=== PATIENT | female | born 1980 | race Caucasian/White ===

== ENCOUNTER 2018-09-04 02:20 | Emergency (ER) | payer SELFPAY ==
[2018-09-04 02:27] VITALS: BP 118/87; PULSE 90; RESP 20; TEMP 36.5; O2SAT 96
--- NOTE | 2018-09-04 02:42 | W.ED.GENAD ---
Discharge Plan Disposition Patient Disposition: HOME Condition: Good Discharge Details Chief Complaint: FacialProb Clinical Impression: Dental infection Primary Care Provider: Karli Nicole ED Provider: Jamal Krishnan Meds and New Rx's Prescriptions: New amoxicillin 500 mg capsule 500 mg PO TID Qty: 30 RF: 0 Discharge Instructions Instructions: Dental Abscess (ED) Additional Instructions: Take antibiotic as directed. Continue to use acetaminophen and ibuprofen for pain. You will need to contact a dentist on Thursday for follow-up. Return to ED for worsening facial swelling, fever, increased pain, difficulty breathing, inability to swallow. Discharge Data Discharge Date/Time-TO BE ENTERED AT DEPARTURE: 09/04/18 02:55 Medical Decision Making Patient with probable dental abscess with related facial edema. There is no gingival abscess for drainage. She is started on amoxicillin. She reports acetaminophen and ibuprofen work for her pain. She will follow-up with a dentist on Thursday. Return to ED if she develops fever, worsening pain, continued/worsening facial swelling, difficulty breathing, inability to swallow. HPI General Mode of arrival: ambulatory. Date/Time Provider Initiated Documentation: 09/04/18 02:33. Limitations to Documentation: no limitations. Information obtained by: patient. HPI Narrative: Patient presents to ED with right upper tooth pain and facial swelling. Patient reports developing toothache a couple of days ago. She had a little bit of facial swelling when she went to bed tonight. Woke up with increased pain and significant facial swelling this morning. Came in for evaluation. She has had no fever. She has no difficulty breathing. She has no difficulty swallowing. She has no eye pain or change in vision. Related Data Home Medications Medication Instructions Recorded Confirmed amoxicillin 500 mg PO TID #30 cap 09/04/18 Previous Rx's Medication Instructions Recorded amoxicillin 500 mg PO TID #30 cap 09/04/18 Allergies Allergy/AdvReac Type Severity Reaction Status Date / Time No Known Allergies Allergy Unverified 09/04/18 02:29 General Stated Complaint: FacialProb LINDA: 3 Review of Systems Constitutional Denies chills, Denies fever(s) and Denies headache(s) Eyes Denies change in vision and Denies eye pain ENT Reports dental pain, Denies otalgia, Reports facial pain, Denies headache(s), Denies lip swelling and Denies sinus pain Cardiovascular Denies dyspnea Respiratory Denies dyspnea Musculoskeletal Denies numbness and Denies tingling Neurologic Denies headache(s), Denies focal weakness, Denies numbness and Denies tingling Allergic/Immunologic Denies lip swelling [facility] Social History Smoking/Tobacco Use Status: Current every day Social History Smoking/Tobacco Use Status: Current every day Exam Const General: cooperative, comfortable and no acute distress Orientation: alert and oriented x3 HENMT Head: normocephalic and atraumatic Ears: external ears normal General nose exam: external nose normal Face and sinus: no erythema, edema on the right maxilla and no tenderness Mouth: oral mucosae normal Teeth and gingiva: abnormal tooth or associated gingiva (Tooth #4 and 5 with percussion tenderness. Tooth #5 with decay and loose. No obvious abscess or swelling to the gingiva.) Eyes Periorbital: periorbital findings abnormal right periorbital swelling (Slight inferior periorbital edema extending up from the facial edema); no tenderness and no erythema Eyelids: eyelids normal Pupils: PERRL EOM: EOM intact bilaterally Neck Neck: normal visual inspection, full ROM and supple Skin General skin exam: no erythema Neuro General: alert, oriented x3, no focal motor deficits and CN's II-XI intact bilaterally Course Vital Signs Temperature 97.7 F 09/04/18 02:27 Pulse 90 09/04/18 02:27 Respiratory Rate 20 09/04/18 02:27 Blood Pressure 118/87 09/04/18 02:27 Pulse Oximetry 96 09/04/18 02:27 Temperature 97.7 F 09/04/18 02:27 Temperature Source Temporal Artery Scan 09/04/18 02:27 Pulse 90 09/04/18 02:27 Respiratory Rate 20 09/04/18 02:27 Respiratory Effort Non-Labored 09/04/18 02:27 Blood Pressure 118/87 09/04/18 02:27 Blood Pressure Position Sitting 09/04/18 02:27 Pulse Oximetry 96 09/04/18 02:27 Oxygen Delivery Method Room Air 09/04/18 02:27 Oxygen Flow Rate 0 09/04/18 02:27 Pain Level 5 09/04/18 02:27
[2018-09-04] MEDS: Amoxicillin 500 MG CAP PO (02:46)
[2018-09-04 03:22] VITALS: BP 118/87; PULSE 90; RESP 20; TEMP 36.5; O2SAT 96
== END 2018-09-04 02:55 | disposition home or self-care (01) ==
LOC: ER 02:58
PROVIDERS: Emergency Provider Emergency Medicine; PCP Family Medicine
DX: R60.0 Localized edema (principal); K04.7 Periapical abscess without sinus
CPT/HCPCS: 99283

== ENCOUNTER 2025-03-10 15:37 | Emergency (ER) | payer OTHER, SELFPAY ==
[2025-03-10 15:39] VITALS: BP 119/85; PULSE 106; RESP 22; TEMP 36.8; O2SAT 98
--- NOTE | 2025-03-10 16:02 | ED.GENADUL_ITS ---
Discharge Plan Disposition Patient Disposition: Home Condition: Stable Discharge Details Clinical Impression: Depression with anxiety Primary Care Provider: Karli Nicole ED Provider: Ro Kelley Home Meds and New Rx's Prescriptions: New escitalopram oxalate [Lexapro] 10 mg tablet 10 mg PO DAILY Qty: 30 0RF hydroxyzine HCl 25 mg tablet 25 mg PO TID PRNQty: 14 0RF Discharge Instructions Instructions: Tips to Help You Purlear in Uncertain Times Additional Instructions: You were seen in the emergency department today for evaluation of depression with anxiety. In our department you had a full physical exam, and met with a social staff worker to discuss outpatient resources. I have provided you with prescriptions for a new antidepressant medication, called Lexapro, which you should take daily. I also provided you with hydroxyzine which you can use as needed for anxiety. This may make you sleepy so please be cautious with driving until you know how this medication will affect you. Please follow-up with your primary care provider in the next few days to discuss this visit and any symptoms that change, worsen, or persist. Thank you for allowing us to be part of your care. HPI General Mode of arrival: ambulatory . Date/Time Provider Initiated Documentation: 03/10/25 15:40 . Limitations to Documentation: no limitations . Information obtained by: patient, family and old records reviewed . HPI Narrative: Past medical history of reported depression and anxiety, not currently actively managed, presenting for evaluation of anxiety. Reports that she has been struggling for the last several years has a substance use disorder, and states that this weekend things acutely worse. He does not reside with her, called her this weekend stating that he needed money because he was being held hostage. She got together 2500 dollars, and brought it to him, at which point he told her that he was never in any danger and needed to monitor drugs. She reports that she feels like her depression anxiety has gotten significantly worse since this event, she feels very tearful, vomiting, she states that she manages the symptoms she reports she is not experiencing suicidal or homicidal, is hopeful that she will be able to engage in health resources because she feels the patient reports that she is not able to meet with her primary care provider for medications for the she smokes cigarettes but she has a safe place to reside with her child, and endorses social supports including friends and father Basim as well as her mother. She has medically been in her typical state of health though she does report over the last 3 years she has had weight loss due to stress. Related Data Home Medications ?Medication ?Instructions ?Recorded ?Confirmed escitalopram oxalate 10 mg tablet 10 mg PO DAILY #30 t abs 03/10/25 (Lexapro) hydroxyzine HCl 25 mg tablet 25 mg PO TID PRN #14 tabs 03/10/25 Previous Rx's ?Medication ?Instructions ?Recorded escitalopram oxalate 10 mg tablet 10 mg PO DAILY #30 t abs 03/10/25 (Lexapro) hydroxyzine HCl 25 mg tablet 25 mg PO TID PRN #14 tabs 03/10/25 Allergies Allergy/AdvReac Type Severity Reaction Status Date / Time No Known Allergies Allergy Unverified 09/04/18 02:29 General Stated Complaint: Anxiety LINDA: 4 Exam Narrative Exam Narrative: Gen: Awake and alert, tearful HEENT: Non-icteric sclera Neck: Supple Lungs: No apparent respiratory distress, normal respiratory effort. Lung sounds clear and equal CV: Appears well perfused with regular rate and rhythm at the time of this provider's examination Abdomen: Non-distended MSK: Moves 4 extremities without apparent limitation in ROM Skin: Visualized skin without rashes, cyanosis. Neuro: Normal Gait, no obvious focal deficits or facial asymmetry. Speaks in full, clear sentences. Psych: Tearful, but forward thinking, linear thought process, no suicidal or homicidal ideation Course Vital Signs Vital signs: Vital Signs Temperature 36.8 C 03/10/25 15:39 Pulse 106 H 03/10/25 15:39 Respiratory Rate 22 03/10/25 15:39 Blood Pressure 119/85 03/10/25 15:39 Pulse Oximetry 98 03/10/25 15:39 Temperature 36.8 C 03/10/25 15:39 Temperature Source Oral 03/10/25 15:39 Pulse 106 H 03/10/25 15:39 Respiratory Rate 22 03/10/25 15:39 Blood Pressure 119/85 03/10/25 15:39 Blood Pressure Position Sitting 03/10/25 15:39 Pulse Oximetry 98 03/10/25 15:39 Oxygen Delivery Method Room Air 03/10/25 15:39 Oxygen Flow Rate 0 03/10/25 15:39 Pain Level 0 03/10/25 15:39 Medical Decision Making This is a 44-year-old female patient presenting for evaluation of depression and anxiety in the setting of increased social stressors. My differential includes but is not limited to primary psychiatric disturbance, the patient has no e vidence on my physical exam or in her history of withdrawal symptoms or active intoxication. She is tolerating oral intake and I have a lower concern for metabolic and electrolyte derangement, infectious abnormalities. The patient meets [facility] medical clearance criteria, and [facility] will be contacted to evaluate the patient and assist in connecting her with resources. I do not see an indication at this time to place the patient on an involuntary psychiatric hold, and suspect she will not meet criteria for inpatient psychiatric care. -The patient engages and will safety plan, and a referral for medication management, and I have started her on Lexapro, 10 mg, which she has utilized in the past to good effect. I also provided her with a short course of hydroxyzine for as needed anxiety management. At this time, the patient has had a full medical evaluation and is safe for discharge to home. They are hemodynamically stable, ambulatory, and tolerating PO. They are understanding of the follow-up plan and return precautions. They left our facility without incident. Ro Kelley MD PFSH All Active Problems (Updated 03/10/25 @ 17:33 by Ro Kelley MD) Depression with anxiety (Acute) Social History Smoking/Tobacco Use Status: Current every day Tobacco Type: cigarettes Years smoked: 20 Smoking risk assessment performed?: Yes Alcohol Intake: never Drug use: Daily Substance use type: marijuana Do you feel safe at home: Yes Do you feel safe in your relationship?: No Additional Social history: Pt endorses she has had past issues with relationships.
[2025-03-10] MEDS: Escitalopram 10 MG TAB PO (17:37)
[2025-03-10 17:54] VITALS: BP 123/98; PULSE 72; RESP 18; O2SAT 98
--- NOTE | 2025-03-10 18:38 | PDOC.MHCN_ITS ---
Date of service: 03/10/25 Time of Service: 18:38 PHQ-9 Over the last 2 weeks, how often have you been bothered by any of the following problems? 1. Little interest or pleasure in doing things: several days 2. Feeling down, depressed, or hopeless: nearly every day 3. Trouble falling or staying asleep, or sleeping too much: several days 4. Feeling tired or having little energy: several days 5. Poor appetite or overeating: several days 6. Feeling bad about yourself - or that you are a failure or have let yourself and your family down: several days 7. Trouble concentrating on things, such as reading the newspaper or watching television: several days 8. Moving or speaking so slowly that other people could have noticed? - Or the opposite - being so fidgety or restless that you have been moving around a lot more than usual: several days 9. Thoughts that you would be better off or of hurting yourself in some way: not at all Total score: 10 If you checked off any problems, how difficult have these problems made it for you to do your work, take care of things at home, or get along with other people?: very difficult Source: Developed by Drs. Jamal Fuentes, Rafaela Harrington, Devon Ruiz and colleagues, with an educational emre from [employer]. Suicide Severity Rate CSSRS Have you wished you were or wished you could go to sleep and not wake up?: No Have you actually had any thoughts of killing yourself?: No CSSRS3 Have you ever done anything, started to do anything or prepared to do anything to end your life?: No Screening Score Total Score: 0 Screening: Negative Mental Health Emergency Note Release [facility] release signed:: Yes Reason for Visit The client is new to [facility]. She has never been hospitalized before. She does not have a PCP yet as she had to reschedule an appointment and they could not get her in for another two months. [facility], Dr. Kelley called requesting an evaluation to get the client supports. She reported a history of anxiety and depression and is not currently on any medications. She also shared that the client's estranged called her recently and told her he was being held captive and needed $2500.00. The client gathered the money and delivered it to him, and he laughed at her as he thanked her for the drug money. In the last 2 weeks has the pt presented for ES prior to today?: Unknown Client Information Client is: New Well Housed: Yes Non Suicidal Self Injury Current: No History: No Safety Risk/Harm to Self or Others Current Ideation to Harm Self or Others: No Risk: Does risk to harm exist?: No Duty to warn indicated: No Asssessment/Mental Status Appearance: Well groomed Attitude: Cooperative and Friendly Behavior: Unremarkable Speech: Normal Affect: Cogruent with mood Mood: Stressed, Depressed and Anxious Thought process: Goal directed Hallucinations: No Delusions: No Attention: Unremarkable Perception: Not impaired Orientation: Fully orientated Memory: Intact Insight: Good Judgement: Good Neurovegetative Symptoms Sleep: Decrease Appetitie: Decrease Interests: Decrease Energy: Decrease Libido: Not applicable Substance Use: Do you use nicotine?: Yes Have you used substances in the last 7 days?: No Additional Issues: Assaultive/Threatening Behavior: No Medical Concerns: No Client engaged in active self harm w/weapon: No Threatening to run away: No Child reported abuse/neglect: No Voluntarily presenting for services: Yes Domestic violence is a concern: No Extreme Psychosis or extreme behavior is present: No Impression The client is a 44-year-old, , female who resides in [facility] [place] with her youngest child. She works two jobs to provide for her family. She engaged in all of the screening tools including the CSSRS. The client uses She/Her pronouns. All underrepresented categories were honored during this assessment. This assessment is completed face to face at bedside. The client stated that she is feeling maxed out with my anxiety and depression. She noted that her symptoms are making her physically sick and she cannot see her PCP for another two months. She stated she cannot wait that long. The client noted she has 4 children and only one left in the home as the others are adults and have moved out. The client presents lying on the stretcher with signs she has been crying a great deal as evidenced by red blotchy cheeks and swollen bloodshot eyes. This clinician introduced herself to the client and asked if she was okay with this clinician doing her assessment as her friend told nursing that she may know this clinician and is not sure if she would trust an assessment by this clinician per the nurse on. The client stated she was fine with this clinician completing her assessment. It is important to note that this clinician is familiar with the client from school years. This clinician informed the client that this clinician is bound by HIPAA and anything she shares stays in that room except for in her medical records. The client is engaged, with clear thoughts and goals to feel better as she cannot maintain like she has been. She noted poor sleep, an hour here or there and poor appetite. She denied any thought disturbances and none were noted either. The client's memory, insight and judgement are good. Resources [employer] reviewed and given:: 988 and Other (Front Porch) Plan/Disposition Recommended Disposition: [facility] Services [facility] Services: Therapy and Psychiatric Evaluation. Plan: The client was sent home on a safety plan. She will check in with ES on Thursday next week via phone between 12pm and 2pm. The client was reminded of 988 as a resource and was informed of the Front Porch. Person reported agreement to plan: Yes Reports/communication Outcome discussed with: ED/Personnel
== END 2025-03-10 17:56 | disposition home or self-care (01) ==
LOC: ER 18:11
PROVIDERS: Emergency Provider Emergency Medicine; PCP Family Medicine
DX: F41.9 Anxiety disorder, unspecified (principal); F32.A Depression, unspecified; F17.210 Nicotine dependence, cigarettes, uncomplicated
CPT/HCPCS: 00123; 96127; 99283

== ENCOUNTER 2025-06-19 15:38 | Outpatient (REF) | payer OTHER, SELFPAY ==
[2025-06-19 15:41] LABS: Abs Immature Grans 0.01 10^3/uL (0.0-0.06); HCT 44.6 % (36.0-46.0); HGB 15.1 g/dL (11.2-15.7); Immature Grans % 0.1 %; MCH 30.9 pg (27.0-33.0); MCHC 33.9 % (32.0-36.0); MCV 91 fL (80-95); MPV 11.3 fL (8.0-11.0); Platelet Count 181 10^3/uL (130-400); RBC 4.89 10^6/uL (3.93-5.22); RDW 12.3 % (11.7-14.6); RDW-SD 41.1 fL; WBC 7.65 10^3/uL (4.4-10.8)
[2025-06-19 16:18] LABS: ALT 20 U/L (14-59); AST 17 U/L (15-37); Albumin 3.9 g/dL (3.4-5.0); Alkaline Phosphatase 69 U/L (46-116); Anion Gap 8.8 mmol/L (3-11); BUN 24 mg/dL (7-18); Bilirubin, Total 0.5 mg/dL (0.2-1.0); CO2 26.2 mmol/L (21.0-32.0); Calcium 9.5 mg/dL (8.5-10.1); Chloride 104 mmol/L (98-107); Estimated GFR 91.40 (mL/min/1.73m2); Glucose 89 mg/dL (74-106); Potassium 4.5 mmol/L (3.5-5.1); Sodium 139 mmol/L (136-145); TSH (W/Ref FT4) 1.12 uIU/mL (0.36-3.74); Total Protein 7.2 g/dL (6.4-8.2)
[2025-06-19 17:07] LABS: Hemoglobin A1C 5.0 % (<5.7)
[2025-06-20 15:37] LABS: Calculated LDL 111 mg/dL (<100); Cholesterol 185 mg/dL (<200); HDL Cholesterol 59 mg/dL (>or=50); Triglyceride 78 mg/dL (<150); Vitamin D 25 Total 42 ng/mL (30-100)
== END 2025-06-19 15:39 | disposition home or self-care (01) ==
LOC: NCHCN 15:38
PROVIDERS: PCP Family Medicine; Visit Provider Nurse Practitioner Family
DX: Z00.00 Encounter for general adult medical examination without abnormal findings (principal)
CPT/HCPCS: 80053; 80061; 82306; 83036; 84443; 85025